=== PATIENT | female | born 1935 | race Hispanic/Latino ===

== ENCOUNTER 2021-03-13 15:03 | Emergency (ER) | payer SELFPAY ==
[~2021-03-13 15:03] MED LIST: EPINEPHrine 1 MG/10 ML Abboject SYRINGE ONE; Sodium Bicarb 50 MEQ/50 ML Abboject 8.4% SYRINGE ONE
== END 2021-03-13 15:09 | disposition expired ==
LOC: CSHERS 15:03
DX: I46.9 Cardiac arrest, cause unspecified (principal); I25.2 Old myocardial infarction
CPT/HCPCS: 92950; J0171